=== PATIENT | female | born 1960 | race Caucasian/White ===

== ENCOUNTER → 2019-04-15 | Outpatient (CLI) | payer BC, OTHER ==
[~2019-04-15] MED LIST: ALEVE220 M1 PO; ENOXAPARIN40 MG/0.1 SUBQ; HYDROCODONE-APA1 TA1 PO; LEVOTHYROXIN0.075 MG PO; MULTIVITAMINS1 EAC7 PO; PRINZIDE 20-251 EACH PO
--- NOTE | 2019-04-17 16:05 | PATH ---
[facility] [address] [place] [address] PATHOLOGY RPT PROCEDURE Name: MARNIE CHIRINOS Scotty Room #: REG [facility] Toni.#: [id number] ������������������ Admission: 04/15/19 ������������������ Date of : 62 Discharge: Report #: [id number] Path Case #: [id number] [facility] Accession Number: [id number] . 01 Material submitted: . PART A: breast - LEFT BREAST BIOPSY, 2:00. Modifiers: left, 2:00 PART B: axilla - LEFT AXILLA CORE BIOPSY. Modifiers: left . 01 Clinical history: . None provided . 02 Diagnosis: A. Breast, left breast 2:00, 2 cm from nipple, needle core biopsy: - INVASIVE MODERATELY DIFFERENTIATED DUCTAL CARCINOMA, JULIUS GRADE II WITH FOCAL MICROPAPILLARY FEATURES, AND MEASURING 1.3 CM IN A SINGLE CORE IN CONTIGUOUS LENGTH. . B. Lymph node, left axilla, needle core biopsy: - COMPATIBLE WITH METASTATIC CARCINOMA. - Lymph node tissue present on both sides of tumor. (IUV:manish; 04/17/2019) QMS/04/17/2019 . 02 Comment: Specimen type: Needle core biopsy Tumor site: Left breast 2:00, 2 cm from nipple Tumor quantitation: 1.3 cm in a single core in contiguous length Histologic type: Invasive ductal carcinoma with focal micropapillary features Histologic grade: Julius grade II Tubules, nuclei and mitoses: 3, 2 and 1, respectively LVSI: Indeterminant Perineural invasion: Present Microcalcifications: Not present Markers: ER, SC, Ki-67, and HER-2/ashley Block: A2 . . HER-2/ashley image analysis is also ordered on block B2 due to the fact that this represents a metastatic site. Results of the image analysis will be reported in an addendum to follow. . Dr. Lucas Borjas has seen international sales representative slides (slide A1 and slide B2) and concurs with my diagnosis. Findings of this case are telephoned to Ms. Webb in our breast center at 09:45 a.m. on 04/17/2019. . [address] [address] PATHOLOGY RPT PROCEDURE Name: MARNIE CHIRINOS Room #: REG CLDieter Perez#: [id number] ������������������ Admission: 04/15/19 ������������������ Date of : 62 Discharge: Report #: [id number] Path Case #: [id number] (IUV:manish; 04/17/20190 . 02 Electronically signed: . Farida Smalls MD, Pathologist NPI- [id number] . 01 Gross description: . A. Received in formalin labeled "Marnie Chirinos, Lt breast 200/2cm," are three needle cores of yellow-mcghee fibrofatty tissue measuring 1.5 cm each in length by 0.2 cm each in diameter. The specimen is submitted entirely in cassettes A1 through A3. The cold ischemic time is less than one minute. The total formalin fixation time is 30 hours and 50 minutes. . B. Received in formalin labeled "O[place]Dorina[place]arnie, Lt axillary node," are four needle cores of green-brown soft tissue ranging from 0.6 to 1.5 cm in length and measuring 0.1 cm each in diameter. The specimen is submitted entirely in cassettes B1 through B3. The cold ischemic time is less than one minute. The total formalin fixation time is 30 hours and 30 minutes. (DAC; 04/16/2019) XDC/XDC . 02 Pathologist provided ICD-10: C50.912, C77.3 . 02 CPT . 239182, 632602 Specimen Comment: A courtesy copy of this report has been sent to Specimen Comment: [phone], , . Specimen Comment: Report sent to ,DR CHAUDHARI / DR MAXWELL Performed at: [address] [facility], [place], [place] [id number] MD Stevie Ahumada MD Phone: [phone] Performed at: [address] [facility] [address] [id number] MD Farida Smalls MD Phone: [phone]
== END ==
LOC: RAD 09:46 → ULTRA 09:46
DX: Z12.31 Encounter for screening mammogram for malignant neoplasm of breast (principal); N63.24 Unspecified lump in the left breast, lower inner quadrant